=== PATIENT | female | born 2000 | race Two or more races ===

== ENCOUNTER 2020-03-22 21:16 | Emergency (ER) | payer MEDICAID ==
[~2020-03-22] VITALS: Ht 154.9 cm; Wt 84.1 kg
[~2020-03-22 21:16] MED LIST: CEPH500T PO
[2020-03-22 22:07] VITALS: BP 131/66
[2020-03-22] MEDS ORDERED: METHOCARBAMOL 750 MG TABLET PO PRN (22:30)
[2020-03-22] MEDS ORDERED: METH-38 PO (22:31)
--- NOTE | 2020-03-22 22:33 | PHYS DOC ---
Past Medical History Past Medical History: No Pertinent History Past Surgical History: Smoking Status: Never Smoker Alcohol Use: None Drug Use: None General Adult EDM: Chief Complaint: LOWER EXT PAIN HPI: HPI: 19-year-old female who denies any significant past medical history presents to the ED with complaints of intermittent episodes of atraumatic pain and swelling to the base of both feet, today was worse on the left side. Patient describes the pain as "sharp skin tightening up," no relief with Tylenol or ibuprofen. States she used to take oxycodone after a and was prescribed in the past for this ankle pain, is requesting this medication refill. Denies any trauma, twisting injury or persistent running. No prior history of bones spurs- states she's had past imaging done. Pt states she currently does not have the pain but it keeps her up at night and is requesting something to help her sleep. ROS: Denies associated fever, chills, joint swelling, rash, leg swelling, abscess, sore throat, cough, dyspnea, chest pain, nausea, vomiting, diaphoresis, radiculopathy, dysuria, hematuria, sensory or motor deficits. Review of Systems: Review of Systems: Constitutional: Denies fever or chills. [] Eyes: Denies change in visual acuity. [] HENT: Denies nasal congestion or sore throat. [] Respiratory: Denies cough or shortness of breath. [] Cardiovascular: Denies chest pain or edema. [] GI: Denies abdominal pain, nausea, vomiting, bloody stools or diarrhea. [] : Denies dysuria. [] Musculoskeletal: Denies back pain or joint pain. [] Integument: Denies rash. [] Neurologic: Denies headache, focal weakness or sensory changes. [] Endocrine: Denies polyuria or polydipsia. [] Lymphatic: Denies swollen glands. [] Psychiatric: Denies depression or anxiety. [] Allergies: Allergies: Allergies Coded Allergies Type Severity Reaction Last Updated Verified No Known Drug Allergies 05/01/19 No Physical Exam: PE: Constitutional: Well developed, well nourished, no acute distress, non-toxic appearance, obese HENT: Normocephalic, atraumatic, bilateral external ears normal, oropharynx moist, no oral exudates, nose normal. [] Eyes: PERRLA, EOMI, conjunctiva normal, no discharge. [] Neck: Normal range of motion, no tenderness, supple, no stridor. [] Cardiovascular:Heart rate regular rhythm, no murmur [] Lungs & Thorax: Bilateral breath sounds clear to auscultation [] Abdomen: Bowel sounds normal, soft, no tenderness, no masses, no pulsatile masses. [] Skin: Warm, dry, no erythema, no rash, equal bl DP/PT pulses Back: No tenderness, no CVA tenderness. [] Extremities: No tenderness, no cyanosis, no clubbing, ROM intact, no edema, no joint swelling, rash or erythema, no focal foot tenderness bilaterally Neurologic: Alert and oriented X 3, normal motor function, normal sensory function, no focal deficits noted. [] Psychologic: Affect normal, judgement normal, mood normal. [] Current Patient Data: Labs: Laboratory Tests Test 03/22/20 22:12 POC Urine HCG, Qualitative Hcg negative (Negative) Vital Signs: Vital Signs Date Time Temp Pulse Resp B/P (MAP) Pulse Ox O2 Delivery O2 Flow Rate FiO2 03/22/20 21:30 98.6 81 14 135/75 (95) 100 Room Air 98.6 EKG: EKG: [] Radiology/Procedures: Impression: Concern for atraumatic bilateral foot pain, requesting oxycodone refill. Patient does not follow with her primary care physician Dr. Tasia Beauchamp. I educated patient that oxycodone is a narcotic pain medication not appropirate for routine atraumatic pain and could cause a lifelong dependency of narcotics. Patient neurovascularly intact with no joint swelling or rash. I encouraged patient to follow-up with her primary care physician will also be given outpatient orthopedic surgery follow-up. Will prescribe Robaxin in addition to OTC apap/nsaids. Pt asymptomatic in ed. Urine is negative. Strict ED return precautions given for neurologic deficits or joint swelling. All of her questions were answered and she was stable at time of discharge. Course & Med Decision Making: Course & Med Decision Making Pertinent Labs and Imaging studies reviewed. (See chart for details) [] Dragon Disclaimer: Dragon Disclaimer: This electronic medical record was generated, in whole or in part, using a voice recognition dictation system. Departure Departure Impression: Primary Impression: Foot pain, bilateral Additional Impressions: Encounter for medication refill Cramps, extremity Disposition: HOME, SELF-CARE Condition: STABLE Referrals: NEWTON ZIMMERMAN APRN (PCP) Patient Instructions: Muscle Cramps Scripts Methocarbamol (ROBAXIN-750) 750 Mg Tablet 500 MG PO QID for 5 Days, #14 TAB Prov: NANCI MORALES DO 03/22/20 Justicifation of Admission Dx: Justifications for Admission: Justification of Admission Dx: N/A NANCI MORALES DO Mar 22, 2020 22:33
== END 2020-03-22 22:38 | disposition home or self-care (01) ==
LOC: ER 21:16
DX: M79.671 Pain in right foot (principal); M79.672 Pain in left foot; Z76.0 Encounter for issue of repeat prescription; R25.2 Cramp and spasm
CPT/HCPCS: 81025; 99283

== ENCOUNTER 2020-04-03 19:40 | Emergency (ER) | payer MEDICAID ==
[~2020-04-03] VITALS: Ht 157.5 cm; Wt 100.0 kg
[~2020-04-03 19:40] MED LIST changes: +METH-38 PO
[2020-04-03] MEDS ORDERED: ONDANSETRON PF 4 MG/2 ML VIAL. IVP ONE (20:00)
[2020-04-03] MEDS ORDERED: fentaNYL PF VIAL 100 MCG/2 ML VIAL IV PRN (20:00)
--- NOTE | 2020-04-03 21:18 | RAD ---
Exam: Left lower extremity venous duplex study INDICATION: Leg swelling TECHNIQUE: Using a combination of real-time ultrasound imaging and color-flow and pulse Doppler imaging techniques along with graded compression and augmentation, duplex evaluation of the deep venous systems of leftlower extremity was performed. Multiple images were obtained. Findings: There is no sonographic evidence for deep venous thrombosis involving the visualized deep venous structures of the left lower extremity. IMPRESSION: No acute DVT in the left lower extremities. Electronically signed by: Lucrecia Snell MD (04/03/2020 9:15 PM) [id number]
[2020-04-03 21:29] LABS: BASO % 0 % (0-3); EOS # 0.1 x10^3/uL (0.0-0.7); EOS % 1 % (0-3); HEMATOCRIT 36.7 % (36.0-47.0); HEMOGLOBIN 11.7 g/dL (12.0-15.5); LYMPH # 2.4 x10^3/uL (1.0-4.8); LYMPH % 20 % (24-48); MEAN CORPUSCULAR HEMOGLOBIN 24 pg (25-35); MEAN CORPUSCULAR HGB CONC 32 g/dL (31-37); MEAN CORPUSCULAR VOLUME 77 fL (79-100); MONO # 0.9 x10^3/uL (0.0-1.1); MONO % 7 % (0-9); NEUT # 8.8 x10^3/uL (1.8-7.7); NEUT % 72 % (31-73); PLATELET COUNT 397 x10^3/uL (140-400); RED CELL DISTRIBUTION WIDTH 18.4 % (11.5-14.5); WHITE BLOOD COUNT 12.2 x10^3/uL (4.0-11.0)
--- NOTE | 2020-04-03 21:33 | RAD ---
Exam: Ultrasound left lower extremity arterial Indication: Possible embolic disease Technique: Real-time grayscale and color Doppler images of the left lower extremity were obtained by the department wood die maker. Comparisons: None FINDINGS: Peak systolic velocities(cm/s) as follows: PHOTOCOPYING EQUIPMENT MECHANIC: 141 DFA: 70 Proximal SFA: 110 Mid SFA: 87 Distal SFA: 85 Popliteal: 61 proximal AUTHORIZATION NURSE: 66 distal AUTHORIZATION NURSE: 44 Peroneal: 68 ALYSIA: 68 DPA: 33 Triphasic waveforms throughout the left lower extremity IMPRESSION: Patent arterial vasculature in the left lower extremity. Electronically signed by: Lucrecia Snell MD (04/03/2020 9:30 PM) [id number]
[2020-04-03 21:41] LABS: CALCIUM 9.1 mg/dL (8.5-10.1); CREATININE 0.7 mg/dL (0.6-1.0); GFR 105.6; POTASSIUM 3.7 mmol/L (3.5-5.1)
[2020-04-03 21:46] LABS: ALBUMIN 3.9 g/dL (3.4-5.0); TOTAL BILIRUBIN 0.3 mg/dL (0.2-1.0)
[2020-04-03 21:57] LABS: C-REACTIVE PROTEIN 30.7 mg/L (0-3.3)
[2020-04-03 22:38] LABS: BILIRUBIN,URINE SMALL (NEG); CLARITY,URINE CLOUDY; COLOR,URINE AMBER; NITRITE,URINE NEGATIVE (NEG); PROTEIN,URINE 30 mg/dL (NEG-TRACE)
[2020-04-03 22:44] LABS: RBC,URINE TNTC /HPF (0-2)
[2020-04-03 22:45] LABS: BACTERIA,URINE MODERATE /HPF (0-FEW); SQUAMOUS EPITHELIAL CELL,UR FEW /LPF; WBC,URINE OCC /HPF (0-4)
[2020-04-03] MEDS ORDERED: HYDR-3165 PO (22:51)
--- NOTE | 2020-04-03 22:51 | PHYS DOC ---
Past Medical History Past Medical History: No Pertinent History Past Surgical History: Smoking Status: Never Smoker Alcohol Use: None Drug Use: None General Adult EDM: Chief Complaint: WOUND CHECK HPI: HPI: Patient is a 19 year old female who presents with complaint of left heel pain for approximately the last month ever since giving to her child. Patient states that she has been seen numerous times for the same complaint at multiple hospitals and by wound care. She states that she has been told that it is caused by numerous things and does not feel like she has had an adequate answer at this point. She rates pain at a 10 out of 10 and states that she has not been able to bear any weight. [] Review of Systems: Review of Systems: Constitutional: Denies fever or chills. [] Respiratory: Denies cough or shortness of breath. [] Cardiovascular: Denies chest pain or edema. [] Musculoskeletal: Complains of left heel pain. [] Integument: Denies rash. [] Neurologic: Denies headache, focal weakness or sensory changes. [] Heart Score: Risk Factors: Risk Factors: DM, Current or recent (<one month) smoker, HTN, HLP, family history of CAD, obesity. Risk Scores: Score 0 - 3: 2.5% MACE over next 6 weeks - Discharge Home Score 4 - 6: 20.3% MACE over next 6 weeks - Admit for Clinical Observation Score 7 - 10: 72.7% MACE over next 6 weeks - Early Invasive Strategies Current Medications: Current Medications Medications (Trade) Dose Ordered Sig/[facility] Start Time Stop Time Status Last Admin Dose Admin Fentanyl Citrate (Fentanyl 2ml Vial) 50 mcg PRN Q15MIN PRN 04/03/20 20:00 04/04/20 19:59 04/03/20 21:24 50 MCG Ondansetron HCl (Zofran) 4 mg 1X ONCE 04/03/20 20:00 04/03/20 20:07 DC 04/03/20 21:24 4 MG Allergies: Allergies: Allergies Coded Allergies Type Severity Reaction Last Updated Verified No Known Drug Allergies 05/01/19 No Physical Exam: PE: Constitutional: Well developed, well nourished, no acute distress, non-toxic appearance. [] HENT: Normocephalic, atraumatic, bilateral external ears normal, oropharynx moist, no oral exudates, nose normal. [] Eyes: PERRLA, EOMI, conjunctiva normal, no discharge. [] Neck: Normal range of motion, no tenderness, supple, no stridor. [] Cardiovascular: Regular rate and rhythm [] Lungs & Thorax: Bilateral breath sounds clear to auscultation [] Abdomen: Bowel sounds normal, soft, no tenderness. [] Skin: Warm, dry, no erythema, no rash. [] Extremities: Examination of left foot demonstrates an area approximately 3 cm in diameter that appears like a bruise and is purple and exquisitely tender to touch. [] Neurologic: Alert and oriented X 3, no focal deficits noted. [] Current Patient Data: Labs: Laboratory Tests Test 04/03/20 21:15 04/03/20 22:20 White Blood Count 12.2 x10^3/uL (4.0-11.0) H Red Blood Count 4.80 x10^6/uL (3.50-5.40) Hemoglobin 11.7 g/dL (12.0-15.5) L Hematocrit 36.7 % (36.0-47.0) Mean Corpuscular Volume 77 fL (79-100) L Mean Corpuscular Hemoglobin 24 pg (25-35) L Mean Corpuscular Hemoglobin Concent 32 g/dL (31-37) Red Cell Distribution Width 18.4 % (11.5-14.5) H Platelet Count 397 x10^3/uL (140-400) Neutrophils (%) (Auto) 72 % (31-73) Lymphocytes (%) (Auto) 20 % (24-48) L Monocytes (%) (Auto) 7 % (0-9) Eosinophils (%) (Auto) 1 % (0-3) Basophils (%) (Auto) 0 % (0-3) Neutrophils # (Auto) 8.8 x10^3/uL (1.8-7.7) H Lymphocytes # (Auto) 2.4 x10^3/uL (1.0-4.8) Monocytes # (Auto) 0.9 x10^3/uL (0.0-1.1) Eosinophils # (Auto) 0.1 x10^3/uL (0.0-0.7) Basophils # (Auto) 0.0 x10^3/uL (0.0-0.2) Sodium Level 139 mmol/L (136-145) Potassium Level 3.7 mmol/L (3.5-5.1) Chloride Level 104 mmol/L (98-107) Carbon Dioxide Level 26 mmol/L (21-32) Anion Gap 9 (6-14) Blood Urea Nitrogen 17 mg/dL (7-20) Creatinine 0.7 mg/dL (0.6-1.0) Estimated GFR (Cockcroft-Gault) 105.6 BUN/Creatinine Ratio 24 (6-20) H Glucose Level 105 mg/dL (70-99) H Calcium Level 9.1 mg/dL (8.5-10.1) Total Bilirubin 0.3 mg/dL (0.2-1.0) Aspartate Amino Transferase (AST) 33 U/L (15-37) Alanine Aminotransferase (ALT) 75 U/L (14-59) H Alkaline Phosphatase 170 U/L (46-116) H C-Reactive Protein, Quantitative 30.7 mg/L (0-3.3) H Total Protein 8.0 g/dL (6.4-8.2) Albumin 3.9 g/dL (3.4-5.0) Albumin/Globulin Ratio 1.0 (1.0-1.7) Urine Collection Type Unknown Urine Color [place] Urine Clarity Cloudy Urine pH 6.0 (<5.0-8.0) Urine Specific [place] 1.025 (1.000-1.030) Urine Protein 30 mg/dL (NEG-TRACE) Urine Glucose (UA) Negative mg/dL (NEG) Urine Ketones (Stick) 15 mg/dL (NEG) Urine Blood Large (NEG) Urine Nitrite Negative (NEG) Urine Bilirubin Small (NEG) Urine Urobilinogen Dipstick 1.0 mg/dL (0.2 mg/dL) Urine Leukocyte Esterase Small (NEG) Urine RBC Tntc /HPF (0-2) Urine WBC Occ /HPF (0-4) Urine Squamous Epithelial Cells Few /LPF Urine Bacteria Moderate /HPF (0-FEW) Urine Mucus Marked /LPF Laboratory Tests 04/03/20 21:15 Laboratory Tests 04/03/20 21:15 Vital Signs: Vital Signs Date Time Temp Pulse Resp B/P (MAP) Pulse Ox O2 Delivery O2 Flow Rate FiO2 04/03/20 19:54 98.3 105 18 164/84 (110) 97 Room Air 98.3 EKG: EKG: [] Radiology/Procedures: Radiology/Procedures: [] Impression: PROCEDURE: ARTERIAL STUDY LOWER EXT LEFT Exam: Ultrasound left lower extremity arterial Indication: Possible embolic disease Technique: Real-time grayscale and color Doppler images of the left lower extremity were obtained by the department portable router operator. Comparisons: None FINDINGS: Peak systolic velocities(cm/s) as follows: HELP DESK CONSULTANT: 141 DFA: 70 Proximal SFA: 110 Mid SFA: 87 Distal SFA: 85 Popliteal: 61 proximal NUCLEAR WASTE MANAGEMENT ENGINEER: 66 distal NUCLEAR WASTE MANAGEMENT ENGINEER: 44 Peroneal: 68 ALYSIA: 68 DPA: 33 Triphasic waveforms throughout the left lower extremity IMPRESSION: Patent arterial vasculature in the left lower extremity. Electronically signed by: Lucrecia Foreman MD (04/03/2020 9:30 PM) [id number] DICTATED and SIGNED BY: LUCRECIA FOREMAN MD DATE: 04/03/202129 Course & Med Decision Making: Course & Med Decision Making Pertinent Labs and Imaging studies reviewed. (See chart for details) [] Dragon Disclaimer: Dragon Disclaimer: This electronic medical record was generated, in whole or in part, using a voice recognition dictation system. Departure Departure Impression: Primary Impression: Skin lesion of foot Disposition: 01 HOME, SELF-CARE Condition: STABLE Referrals: NEWTON ZIMMERMAN APRN (PCP) Patient Instructions: Hematoma Scripts Hydrocodone/Apap 7.5-325 (NORCO 7.5-325 TABLET) 1 Each Tablet 1 TAB PO PRN Q6HRS PRN for PAIN, #14 TAB 0 Refills Prov: KARL VERDE Jr. DO 04/03/20 Justicifation of Admission Dx: Justifications for Admission: Justification of Admission Dx: Comment: (Not applicable) KARL VERDE Jr. DO Apr 03, 2020 22:51
[2020-04-03 23:12] VITALS: BP 133/69
== END 2020-04-03 23:13 | disposition home or self-care (01) ==
LOC: ER 19:40
DX: L98.8 Other specified disorders of the skin and subcutaneous tissue (principal); M79.672 Pain in left foot
CPT/HCPCS: 36415; 80053; 81001; 85025; 86140; 87086; 93923; 93971; 96374; 96375; 99285; J2405; J3010

== ENCOUNTER 2020-04-17 00:33 | Emergency (ER) | payer MEDICAID ==
[~2020-04-17] VITALS: Ht 160 cm; Wt 118.0 kg
[~2020-04-17 00:33] MED LIST changes: +HYDR-3165 PO
[2020-04-17] MEDS ORDERED: OXYC1TAB15 PO (01:14)
--- NOTE | 2020-04-17 01:14 | PHYS DOC ---
Past Medical History Past Medical History: No Pertinent History Past Surgical History: Smoking Status: Never Smoker Alcohol Use: None Drug Use: None General Adult EDM: Chief Complaint: FOOT INJURY PAIN HPI: HPI: Patient is a 19 year old female presenting to the ED with a chief complaint of pain to both her legs especially the left leg. Patient states that there is a blister on the bottom of her foot. Patient states that she was evaluated by a heel cover splitter and was told that she had plantar fasciitis. She was also seen at another ER and was told that she had a blood blister. Patient states that the symptoms started on March 05 when she delivered her baby. It was thought that patient's symptoms are exacerbated due to increased weight gain secondary to . Patient states that she is out of her pain medication and she is not getting any answers from anyone. Patient states that she could not sleep for the last few days and so came into the ER tonight. Review of Systems: Review of Systems: Constitutional: Denies fever or chills. [] Eyes: Denies change in visual acuity. [] HENT: Denies nasal congestion or sore throat. [] Respiratory: Denies cough or shortness of breath. [] Cardiovascular: Denies chest pain or edema. [] Musculoskeletal: Complains of bilateral foot pain Heart Score: Risk Factors: Risk Factors: DM, Current or recent (<one month) smoker, HTN, HLP, family history of CAD, obesity. Risk Scores: Score 0 - 3: 2.5% MACE over next 6 weeks - Discharge Home Score 4 - 6: 20.3% MACE over next 6 weeks - Admit for Clinical Observation Score 7 - 10: 72.7% MACE over next 6 weeks - Early Invasive Strategies Current Medications: Current Medications Medications (Trade) Dose Ordered Sig/Breann Start Time Stop Time Status Last Admin Dose Admin Morphine Sulfate (Morphine Sulfate) 10 mg 1X ONCE 04/17/20 01:30 04/17/20 01:31 Ondansetron HCl (Zofran Odt) 4 mg 1X ONCE 04/17/20 01:30 04/17/20 01:31 Allergies: Allergies: Allergies Coded Allergies Type Severity Reaction Last Updated Verified No Known Drug Allergies 05/01/19 No Physical Exam: PE: Constitutional: Well developed, well nourished, no acute distress, non-toxic appearance. [] HENT: Normocephalic, atraumatic Eyes: EOMI Neck: Normal range of motion, Respiratory: No respiratory distress Extremities: Blister on the heel of the left foot Neurologic: Alert and oriented X 3 Current Patient Data: Vital Signs: Vital Signs Date Time Temp Pulse Resp B/P (MAP) Pulse Ox O2 Delivery O2 Flow Rate FiO2 04/17/20 00:50 97.3 89 16 160/83 (108) 96 Room Air 97.3 EKG: EKG: [] Radiology/Procedures: Radiology/Procedures: [] Course & Med Decision Making: Course & Med Decision Making We will treat with pain control. Patient will be discharged home on pain medication and is instructed to follow- up with podiatry and PCP. Caesar Disclaimer: Caesar Disclaimer: This electronic medical record was generated, in whole or in part, using a voice recognition dictation system. Departure Departure Impression: Primary Impression: Blister of foot, left Disposition: 01 HOME, SELF-CARE Condition: STABLE Referrals: NEWTON ZIMMERMAN APRN (PCP) Patient Instructions: Blisters Additional Instructions: Discussed plan of care with patient. Patient is instructed to follow up with PCP in one to 2 days. Appropriate discharge instructions given to patient to return to the ED or to seek immediate medical evaluation. Patient is instructed to return to the ED if symptoms worsen or if any concerns. Scripts Oxycodone/Apap 5-325 (PERCOCET 5-325 MG TABLET ) 1 Each Tablet 1 EACH PO PRN TID PRN for PAIN, #20 TAB pain Prov: MAHAMED WRIGHT DO 04/17/20 Justicifation of Admission Dx: Justifications for Admission: Justification of Admission Dx: MAHAMED Mendiola DO Apr 17, 2020 01:14
[2020-04-17] MEDS ORDERED: MORPHINE SULFATE 10 MG/ML VIAL. IM ONE (01:30)
[2020-04-17] MEDS ORDERED: ONDANSETRON ODT 4 MG TAB.RAPDIS. PO ONE (01:30)
[2020-04-17 01:50] VITALS: BP 144/92
== END 2020-04-17 01:54 | disposition home or self-care (01) ==
LOC: ER 00:33
DX: S90.822A Blister (nonthermal), left foot, initial encounter (principal); Z98.890 Other specified postprocedural states; X58.XXXA Exposure to other specified factors, initial encounter; Y93.89 Activity, other specified; Y92.89 Other specified places as the place of occurrence of the external cause; Y99.8 Other external cause status
CPT/HCPCS: 96372; 99283; J2270

== ENCOUNTER 2020-05-20 14:28 | Emergency (ER) | payer MEDICAID ==
[~2020-05-20] VITALS: Ht 157.5 cm; Wt 85.3 kg
[~2020-05-20 14:28] MED LIST changes: +OXYC1TAB15 PO
[2020-05-20 14:52] VITALS: BP 144/67
--- NOTE | 2020-05-20 14:56 | PHYS DOC ---
Past Medical History Past Medical History: No Pertinent History Past Surgical History: Smoking Status: Never Smoker Alcohol Use: None Drug Use: None General Adult EDM: Chief Complaint: PSYCH EVALUATION HPI: HPI: Patient is a 19 year old female who delivered a baby in February and has been battling depression since. Patient has been taking Zoloft sporadically. Patient states she has had some very vague suicidal ideation. Patient has been battling tenosynovitis of the left foot over the last couple months and that has caused her depression to be worse. Patient denies any other physical complaints at this time. Review of Systems: Review of Systems: Constitutional: Denies fever or chills. [] Eyes: Denies change in visual acuity. [] HENT: Denies nasal congestion or sore throat. [] Respiratory: Denies cough or shortness of breath. [] Cardiovascular: Denies chest pain or edema. [] GI: Denies abdominal pain, nausea, vomiting, bloody stools or diarrhea. [] : Denies dysuria. [] Musculoskeletal: Denies back pain has left foot pain Integument: Denies rash. [] Neurologic: Denies headache, focal weakness or sensory changes. [] Endocrine: Denies polyuria or polydipsia. [] Lymphatic: Denies swollen glands. [] Psychiatric: Complains of depression Heart Score: Risk Factors: Risk Factors: DM, Current or recent (<one month) smoker, HTN, HLP, family history of CAD, obesity. Risk Scores: Score 0 - 3: 2.5% MACE over next 6 weeks - Discharge Home Score 4 - 6: 20.3% MACE over next 6 weeks - Admit for Clinical Observation Score 7 - 10: 72.7% MACE over next 6 weeks - Early Invasive Strategies Allergies: Allergies: Allergies Coded Allergies Type Severity Reaction Last Updated Verified No Known Drug Allergies 05/01/19 No Physical Exam: PE: Constitutional: Well developed, well nourished, no acute distress, non-toxic appearance. [] HENT: Normocephalic, atraumatic, bilateral external ears normal, no trismus nose normal. [] Eyes: PERRLA, EOMI, conjunctiva normal, no discharge. [] Neck: Normal range of motion, no tenderness, supple, no stridor. [] Cardiovascular:Heart rate regular rhythm, peripheral pulses intact, cap refill brisk Lungs & Thorax: Bilateral breath sounds clear, no respiratory distress Abdomen: soft, no tenderness, no masses, no pulsatile masses. [] Skin: Warm, dry, no erythema, no rash. [] Back: No tenderness, no CVA tenderness. [] Extremities: Mild tenderness to palpate left foot no cyanosis, no clubbing, ROM intact, no edema. [] Neurologic: Alert and oriented X 3, normal motor function, normal sensory function, no focal deficits noted. [] Psychologic: Depressed mood EKG: EKG: [] Radiology/Procedures: Radiology/Procedures: [] Course & Med Decision Making: Course & Med Decision Making Pertinent Labs and Imaging studies reviewed. (See chart for details) [] Patient medically cleared and seen by the psychiatric assessment team. Patient cleared for outpatient follow-up with the crisis center. Patient given outpatient referrals. Patient denies active suicidal ideation. Dragon Disclaimer: Dragon Disclaimer: This electronic medical record was generated, in whole or in part, using a voice recognition dictation system. Departure Departure Impression: Primary Impression: depression Disposition: 01 HOME, SELF-CARE Condition: STABLE Referrals: NEWTON ZIMMERMAN APRN (PCP) Follow-up with the resources provided to you by the behavioral health team next week. Patient Instructions: Depression, Adult Additional Instructions: EMERGENCY DEPARTMENT GENERAL DISCHARGE INSTRUCTIONS THANK YOU for coming to [facility] Emergency Department (ED) today and trusting us with your care. We trust that you had a positive experience in our Emergency Department. If you wish to speak to the department Management you can contact the chief librarian circulation department at . YOUR FOLLOW UP INSTRUCTIONS ARE FOLLOWS: Do you have a private doctor? If you do not have a private doctor, please ask for a resource list of physicians or clinics that may be able to assist you with follow up care. The Emergency Physician has interpreted your x-rays. The X-ray specialist will also review them. If there is a change in the findings you will be notified in 48 hours when at all possible. A lab test or lab culture may have been done, your results will be reviewed and you will be notified if you need a change in treatment. ADDITIONAL INSTRUCTIONS AND INFORMATION Your care today has been supervised by a physician who is specially trained in emergency care. Many problems require more than one evaluation for a complete diagnosis and treatment. We recommend that you schedule your follow up appointment as recommended to ensure complete treatment of your illness or injury. If you are unable to obtain follow up care and continue to have a problem, or if your condition worsens we recommend that you return to the ED. We are not able to safely determine your condition over the phone nor are we able to give sound medical advice over the phone. For these safety reasons, if you call for medical advice we will ask you to come to the ED for further evaluation If you have any questions regarding these discharge instructions please call the ED at . SAFETY INFORMATION In the interest of safety, wellness, and injury prevention; we encourage you to wear your seatbelt, if you smoke; quit smoking, and we encourage your family to use protective helmet for bicycling and other sporting events that present an increased risk for head injury. IF YOUR SYMPTOMS WORSEN OR NEW SYMPTOMS DEVELOP, OR YOU HAVE CONCERNS ABOUT YOUR CONDITION; OR IF YOUR CONDITION WORSENS WHILE YOU ARE WAITING FOR YOUR FOLLOW UP APPOINTMENT; EITHER CONTACT YOUR PRIMARY CARE DOCTOR, THE PHYSICIAN WHOSE NAME AND NUMBER YOU WERE GIVEN, OR RETURN TO THE ED IMMEDIATELY. Justicifation of Admission Dx: Justifications for Admission: Justification of Admission Dx: No ADONAY LIMON MD May 20, 2020 14:56
== END 2020-05-20 18:51 | disposition home or self-care (01) ==
LOC: ER 14:28
DX: O99.345 Other mental disorders complicating the puerperium (principal); F53.0 Postpartum depression; R45.851 Suicidal ideations; M65.872 Other synovitis and tenosynovitis, left ankle and foot
CPT/HCPCS: 81025; 99284